=== PATIENT | male | born 2000 | race Two or more races ===

== ENCOUNTER 2023-09-05 10:49 | Outpatient (CLI) | payer OTHER ==
--- NOTE | 2023-09-05 10:57 | CARDIAC PROCEDURE NOTE ---
Stress Test Report Service Date: 09/05/23 Service Time: 11:00 Ordering Provider: Bruce Amaro MD Indication for Test: Assess chest discomfort. 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 He has experienced physical stress reactions intermittently and in March of this year began to experience episodic mild chest discomfort and palpitations during stressful situations. In early May he had a more severe episode of chest discomfort that he reports felt "like my spine was trying to move forward to compress my heart". The episode was associated with heavy heart beats and radiation of the discomfort to his left arm, as well as increased discomfort with inspiration. He had learned of an aunt's passing around this time, though today he does not attribute the chest pain episode to this life stressor. The next day he was seen at the medical unit where an EKG was fully normal. In early-mid June he was seen by a psychiatrist for his anxiety and started on daily sertraline and bid propranolol, which he believes have together stabilized his mood and been associated with reduced frequency and intensity of his chest discomfort episodes (though he did have a mild episode last evening for which he took his usual propranolol dose with improvement). 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 He does feel that his stamina is significantly reduced compared with one year ago, possibly more so since being on the sertraline/propranolol combination. Cardiac Risk Factors: Negative for hypertension, known hyperlipidemia, diabetes, tobacco smoking and known family history of coronary artery disease. Type of Stress Test: Exercise Treadmill Test (ETT) Procedure: -Exercise Treadmill Test- After signing informed consent, the patient performed treadmill exercise using a Alex protocol. The patient exercised for 7 minutes and 25 seconds and achieved a peak heart rate of 185 (92 percent predicted maximum heart rate for age), and an estimated workload of 9.2 METS. The test was terminated due to fatigue/shortness of breath. Resting heart rate: 107 Peak heart rate: 185 Tachycardic at rest with normal response to exercise. Resting BP: 117/73 Peak BP: 137/78 Normal resting systolic and diastolic BPs, with abnormal increases of both systolic and diastolic BPs to exercise. Room air oxygen saturation during exercise ranged between 95-96%. Rhythm during exercise: Sinus rhythm throughout, without ectopy. Symptoms: He did not report experiencing any chest pressure/discomfort/pain nor heavy heart beats with exertion. EKG at rest showed normal sinus rhythm with scattered ST elevation of up to 1 mm, likely due to normal variant early repolarization. EKG showed anterolateral T-wave inversion starting in stage 2 (non-dignostic) with horizontal to downsloping ST depression of at least 1.0 mm in leads II,III,aVF and V5-6 at peak stress that appears to meet EKG diagnostic criteria for ischemia. In Recovery HR decreased towards baseline levels with biphasic BP response ( initially decreased to 112/87 but then increased again, with HR 109, BP 137/96 at 5:00. No imaging was ordered with this stress test. IArthur MD, was present throughout this treadmill stress study and supervised it in its entirety. Summary: 1) Exercise tolerance was for markedly decreased for age and sex as evidenced by TIMOTHY of 49%. 2) Normal resting EKG. 3) Adequate level of exercise was achieved on this treadmill stress test. 4) Abnormal BP response to exercise. 5) ST depression meeting diagnostic EKG criteria for ischemia was seen at peak stress. 6) No imaging was ordered with this test. Conclusions and Recommendations: 1) Overall the patient's chest discomfort and palpitations have been reduced f ollowing initiation and regular use of sertaline and propranolol. 2) While today's test was negative clinically (no reported chest discomfort), by strict diagnostic criteria the EKG response was consistent with inducible ischemia. Furthermore, he had an increase of only 20 mmHg in systolic BP and his exercise time was well below average for his age and sex. 3) With the above described abnormalities of exercise duration, poor BP augmentation and ST depression I believe he warrants further evaluation, such as repeat ETT with imaging (echo or radionuclide perfusion) OR formal Cardiology evaluation, to discuss next diagnostic steps. I SPENT 30 MINUTES ATTEMPTING TO REACH ONE OF HIS PROVIDER TEAM AND WAS FINALLY TOLD THAT A COVERING PROVIDER WILL CALL ME BACK (NOT RECEIVED NEARLY 3 HOURS LATER). THE PATIENT IS SCHEDULED TO DEPLOY TO [facility] IN 5 DAYS, SO A TRIAGE DECISION NEEDS TO BE REACHED WITH A SHORT-TIME FRAME. 4) Given that his anxiety symptoms have been reduced with several weeks of co mbined sertraline and propranolol treatment I advised him to discuss with his psychiatrist whether he could change the propranolol to prn use as a "rescue med", given that he has probably attained full anxiolytic benefit from the sertraline by this time. This might allow him to feel better with exertion.
== END 2023-09-05 10:50 | disposition home or self-care (01) ==
LOC: DI 10:49
PROVIDERS: ATTEND General Practice
DX: R94.39 Abnormal result of other cardiovascular function study (principal); R07.9 Chest pain, unspecified; E78.5 Hyperlipidemia, unspecified; F17.200 Nicotine dependence, unspecified, uncomplicated; Z82.49 Family history of ischemic heart disease and other diseases of the circulatory system
CPT/HCPCS: 93017